=== PATIENT | female | born 1990 | race Caucasian/White ===

== ENCOUNTER 2017-10-21 03:53 | Inpatient (IN) | payer OTHER ==
[2017-10-21] MEDS ORDERED: PITOCin/NS 20 UNIT/1000ML DRIP 20,000 MILLIUNITS/1,000 ML BAG IV ONE (03:57)
[2017-10-21] MEDS ORDERED: LACTATED RINGERS 1,000 ML ONE (03:57)
--- NOTE | 2017-10-21 04:54 | History and Physical Report ---
History of Present Illness Date of examination: 10/21/17 Date of admission: 10/21/17 04:00 Chief complaint: contractions, leaking fluid History of present illness: 27yo G 4 P 3 0 0 3 at 38 weeks 3 days here with c/o contractions that started since 21:00 and leaking fluid since 03:40. She reports receiving care at [facility]. She denies any complications this . No records available. GBS is unknown. Past History Past Medical History: no pertinent history Past Surgical History: no surgical history Family/Genetic History: none Social history: lives with family, full code - Obstetrical History Expected Date of Delivery: 11/01/17 Actual Gestation: 38 Week(s) 3 Day(s) : 4 Para: 3 Hx # Term Pregnancies: 0 Number of Pregnancies: 0 Spontaneous Abortions: 0 Induced : 0 Number of Living Children: 3 Medications and Allergies Allergies Allergy/AdvReac Type Severity Reaction Status Date / Time No Known Allergies Allergy Unverified 10/21/17 04:40 Home Medications Medication Instructions Recorded Confirmed Last Taken Type Pnv 29-1 Tablet 1 tab PO DAILY 10/21/17 10/21/17 2 Days Ago History ~10/19/17 Review of Systems All systems: negative - Vital Signs Vital signs: Vital Signs Temp Resp 99.1 F 22 10/21/17 04:39 10/21/17 04:39 Temp Pulse Resp BP Pulse Ox 99.1 F 77 22 131/74 10/21/17 04:39 10/21/17 04:47 10/21/17 04:39 10/21/17 04:47 - Obstetrical FHR: category 2 FHR comments: baseline 135, moderate variability, + accels, variable decels Uterine Contraction Monitor Mode: External Cervical Dilatation: 10 (per RN upon arrival) Cervical Effacement Percentage: 100 (per RN upon arrival) station: +2 (per RN upon arrival) Uterine Contraction Frequency (min): 2-3 Uterine Contraction Pattern: Regular Results All other labs normal. Assessment and Plan - Patient Problems (1) 38 weeks gestation of Current Visit: Yes Status: Acute (2) Active labor at term Current Visit: Yes Status: Acute Plan to address problem: Admit to L&D with routine labor orders Anticipate imminent vaginal delivery (3) Labor, precipitous Current Visit: Yes Status: Acute (4) (normal spontaneous vaginal delivery) Current Visit: Yes Status: Acute Plan to address problem: RN-assisted vaginal delivery
[2017-10-21] MEDS ORDERED: LACTATED RINGERS 1,000 ML IV SCH (05:00)
[2017-10-21] MEDS ORDERED: PITOCin/NS 20 UNIT/1000ML DRIP 20 UNITS/1,000 ML BAG IV SCH (05:00)
[2017-10-21 05:05] LABS: Hematocrit 38.5 % (30.3-42.9); Hemoglobin 12.7 gm/dl (10.1-14.3); Mean Corpuscular HGB Conc 33 % (30-34); Mean Corpuscular Hemoglobin 30 pg (28-32); Mean Corpuscular Volume 90 fl (79-97); Platelet Count 195 K/mm3 (140-440); Red Blood Count 4.28 M/mm3 (3.65-5.03); Red Cell Distribution Width 14.1 % (13.2-15.2)
[2017-10-21] MEDS ORDERED: DULCOLAX PR PRN (05:05)
[2017-10-21] MEDS ORDERED: MILK OF MAGNESIA PO PRN (05:05)
[2017-10-21] MEDS ORDERED: TYLENOL PO PRN (05:05)
[2017-10-21] MEDS ORDERED: PHENERGAN PO PRN (05:05)
[2017-10-21] MEDS ORDERED: ZOFRAN IV PRN (05:05)
[2017-10-21] MEDS ORDERED: BENADRYL PO PRN (05:05)
[2017-10-21] MEDS ORDERED: LANSINOH TP PRN (05:05)
[2017-10-21] MEDS ORDERED: TUCKS PAD TP PRN (05:05)
[2017-10-21] MEDS ORDERED: PHENERGAN PR PRN (05:05)
--- NOTE | 2017-10-21 05:18 | Procedure Note ---
OB Delivery Note - Delivery Date of Delivery: 10/21/17 (04:08) Surgeon: JUHI CATES (delivery by Obdulio Denton, GLORIA) Estimated blood loss: 100cc - Vaginal Delivery presentation: vertex Delivery position: OA Intrapartum events: precipitous labor- <3hr Delivery induction: none Delivery monitor: external FHT, external uterine Route of delivery: (RN-assisted @ 04:08) Delivery placenta: spontaneous (RN-assisted @ 04:32) Episiotomy: none Delivery laceration: none Anesthesia: none Delivery comments: of a live 6 lbs 11 oz female on 10/21/17 @ 04:08 by Obdulio Denton, GLORIA. Spontanoeus delivery of placenta by RN at 04:32. Upon arrival, right vaginal side-wall skid tiffany present and hemostatic so not repaired. Small lochia present. Fundus F/ML/U-1. Mom and baby [id number] in stable condition. - A at 1 minute: 8 at 5 minutes: 9 Infant Gender: Male (6 lbs 11 oz (3041 gm); 19 1/2 in)
[2017-10-21] MEDS: NORCO 5/325 PO PRN (05:25)
[2017-10-21] MEDS ORDERED: SODIUM CHLORIDE FLUSH SYRINGE 10 ML IV NR (06:00)
[2017-10-21] MEDS: MOTRIN PO SCH (23:11)
[2017-10-22] MEDS: NORCO 5/325 PO PRN (02:20)
[2017-10-22] MEDS: MOTRIN PO SCH ×4 (05:14→23:34)
[2017-10-22] MEDS: PRENATAL VITAMIN PO SCH (08:40)
--- NOTE | 2017-10-22 09:56 | Progress Note ---
Assessment and Plan A: PPD#1 s/p Breast/bottle feeding Stable P: Routine PP care Anticipate home in am Subjective - Subjective Date of service: 10/22/17 Principal diagnosis: Interval history: See H&P and delivery note Patient reports: appetite normal, voiding normally, pain well controlled, flatus , ambulating normally, no bowel movement : doing well, other (breast/bottle) Objective - Vital Signs Latest vital signs: Vital Signs Temp Pulse Resp BP Pulse Ox 10/22/17 07:41 97.4 F L 76 18 122/71 99 10/22/17 01:02 97.9 F 80 20 108/60 100 10/21/17 16:26 98.2 F 72 20 118/66 97 10/21/17 12:33 98.5 F 82 20 130/75 95 Intake and Output 10/21/17 10/22/17 10/22/17 23:59 07:59 15:59 Intake Total 120 360 Balance 120 360 Intake: Oral 120 Intake, Free Water 360 Other: Total, Intake Amount 120 Voiding Method Toilet Toilet # Voids 3 Void 1 3 - Exam Breasts: Present: normal Cardiovascular: Present: Regular rate, Normal S1, Normal S2 Lungs: Present: Clear to auscultation, Normal air movement Abdomen: Present: normal appearance, soft, normal bowel sounds. Absent: distention Vulva: both: normal Uterus: Present: firm, fundal height at umbilicus Extremities: Present: normal Deep Tendon Reflex Grade: Normal +2
--- NOTE | 2017-10-22 09:58 | Discharge Summary ---
Providers - Providers Date of Admission: 10/21/17 04:00 Date of discharge: 10/23/17 Attending physician: MARCIN LIVE MD Primary care physician: MARCIN LIVE MD Hospitalization Reason for admission: active labor, IUP at term Delivery: Procedure details: See delivery note Episiotomy: none Laceration: none Other procedures: none complications: none Discharge diagnosis: IUP at term delivered [place] baby: female Condition at discharge: Good Disposition: DC-01 TO HOME OR SELFCARE Plan - Provider Discharge Summary Activity: routine, no sex for 6 weeks, no heavy lifting 4 weeks, no strenuous exercise Diet: routine Instructions: routine Additional instructions: [] Smoking cessation referral if applicable(refer to patient education folder for contact #) [] Refer to [facility]'s [facility] Booklet Call your doctor immediately for: * Fever > 100.5 * Heavy vaginal bleeding ( >1 pad per hour) * Severe persistent headache * Shortness of breath * Reddened, hot, painful area to leg or breast * Drainage or odor from incision. * Keep incision clean and dry at all times and follow doctor's instructions regarding bathing/showering - Follow up plan Follow up: MARCIN LIVE MD [Primary Care Provider] - 6 Weeks
[2017-10-22 11:44] LABS: Hematocrit 35.8 % (30.3-42.9); Hemoglobin 12.3 gm/dl (10.1-14.3)
[2017-10-22 22:27] LABS: Amphetamine Screen,Urine PRESUMPTIVE NEGATIVE; Benzodiazepines Screen,Urine PRESUMPTIVE NEGATIVE; Cannabinoid Screen,Urine PRESUMPTIVE NEGATIVE; Cocaine Screen,Urine PRESUMPTIVE NEGATIVE; Methadone Screen,Urine PRESUMPTIVE NEGATIVE; Opiate Screen,Urine PRESUMPTIVE NEGATIVE
[2017-10-23] MEDS: MOTRIN PO SCH (05:35)
[2017-10-23 08:48] VITALS: BP 119/68
[2017-10-23] MEDS: PRENATAL VITAMIN PO SCH (10:30)
== END 2017-10-23 16:08 | disposition home or self-care (01) | DRG 775 ==
LOC: TRG 03:53 → LD 04:00 → OB 06:47
PROVIDERS: ADMIT Obstetrics & Gynecology; ATTEND Obstetrics & Gynecology
PROC: 10E0XZZ Delivery of Products of Conception, External Approach (ICD-10-PCS; principal; 2017-10-21)
DX: O62.3 Precipitate labor (principal); Z3A.38 38 weeks gestation of pregnancy; Z37.0 Single live birth
CPT/HCPCS: 36415; 80307; 85014; 85018; 85027; 86592; 86706; 86762; 86850; 86900; 86901; 87806; 93970; 99211; G0463; J2590; J7120